=== PATIENT | female | born 1980 | race Caucasian/White ===

== ENCOUNTER 2016-11-17 15:41 | Emergency (ER) | payer OTHER ==
[~2016-11-17 15:41] MED LIST: EXCEDRIN MIGRAINE PO; FLONASE AL50 MCG/ACT IN; NEURONTIN300 MG PO; NORCO1 TA1 PO; PHENERGAN EQUIV25 MG PO; PRAZOSIN HCL5 MG PO; PSEUDOEPHEDRINE30 MG PO; RANITIDINE HCL150 MG PO; SERTRALINE HCL50 MG PO; VENTOLIN HFA IN
--- NOTE | 2016-11-17 17:53 | DIAGNOSTIC IMAGING REPORT ---
PROCEDURE: XR SOFT TISSUE NECK INDICATION: Difficulty swallowing and sore throat. TECHNIQUE: AP and lateral views. COMPARISON: None. FINDINGS: Soft tissues of the neck are within normal limits, including the airway, laryngeal ventricle, and epiglottis. Nasopharynx appears normal. IMPRESSION: 1. Normal soft tissues of the neck.
--- NOTE | 2016-11-17 18:00 | ED NURSING NOTES ---
Clinical Report - Nurses [facility] [address] [place] [address] 11/17/2016 15:42 Patient: NICOLETTE LOPEZ TRIAGE Triage time 16:20. Acuity: LEVEL 4. Chief Complaint: (TROUBLE SWALLOWING). Alert. No acute distress. MORALES COMA SCORE: Morales Coma Scale: 15- eyes open spontaneously (4); best verbal response- oriented x 4 (5); best motor response- obeys commands (6). --16:31 Magalys Estrada R.N. 16:23 11/17/16. BP: 135/65. HR: 88. RR: 18. O2 saturation: 9%. Temp: 97.3 F (oral). Pain level now: 810. --16:31 Magalys Estrada R.N. Weight: 90.7 kg stated. Height/Length: 60 inches Per Patient. BMI: 39.1. --16:27 Magalys Estrada R.N. Medications Ibuprofen Oral 600 mg, PRN as needed, last dose 1000. --16:22 Magalys Estrada R.N. Prazosin HCl Oral 5 mg, at bedtime. Sertraline HCl Oral 150mg daily . TraZODone HCl Oral 150 mg, at bedtime as needed, last dose 2300. --16:22 Magalys Estrada R.N. Amitriptyline HCl Oral, at bedtime. --16:25 Magalys Estrada R.N. Hydrocodone-Acetaminophen Oral. --16:27 Magalys Estrada R.N. The following entry was struck and corrected by Magalys Estrada R.N., 16:24 (11/17/16) Reason for correction - other(correction). <<STRICKEN ENTRY-- TraZODone HCl Oral 150 mg, at bedtime, last dose 2300. --16:22 Magalys Estrada R.N. --END STRIKE>> The following entry was struck and corrected by Magalys Estrada R.N., 16:24 (11/17/16) Reason for correction - other(correction). <<STRICKEN ENTRY-- Ibuprofen Oral 400 mg, 3x a day as needed, last dose 1000. --16:22 Magalys Estrada R.N. --END STRIKE>> The following entry was struck by Magalys Estrada R.N., 16:24 (11/17/16) Reason - other. <<STRICKEN ENTRY-- Gabapentin Oral 300 mg, 3x a day. --16:22 Magalys Estrada R.N. --END STRIKE>>. Medication/allergy information source: other. --16:31 Magalys Estrada R.N. Allergies No Known Drug Allergy. --16:22 Magalys Estrada R.N. History Arrived by private vehicle. Historian: patient. Accompanied by family. Primary physician (Jose). Onset. (3 weeks). ( has had a z-lucas). PAST MEDICAL HX: Last normal menstrual period now. SOCIAL HX: Heavy tobacco smoker- 1 pack per day. Occasional alcohol use. History of drug use: marijuana. FALL RISK ASSESSMENT: Fall risk assessment completed. No fall risk identified. FUNCTIONAL ASSESSMENT: Functional assessment: no impairments noted. LEARNING NEEDS ASSESSMENT: The learning needs assessment revealed no barriers. --16:31 Magalys Estrada R.N. PROBLEMS: Lumbar Strain. Back Pain. --16:26 Magalys Estrada R.N. ADDITIONAL SURGERIES: Cholecystectomy. . Tubal Ligation. --16:26 Magalys Estrada R.N. Assessment GENERAL / NEURO / PSYCH: Alert. Oriented X 4. Appears in no acute distress. Patient appears calm and cooperative. ( managing her secretions without difficulty). RESPIRATORY: Respirations not labored. SKIN: Skin is warm and dry. --16:31 Magalys Estrada R.N. Interventions ID band on patient. To treatment room. --16:31 Magalys Estrada R.N. PHYSICAL ASSESSMENT 16. Ambulatory to room. Patient gowned. GENERAL / NEURO / PSYCH: Alert. Oriented X 4. Appears in no acute distress. HEENT: No facial asymmetry noted. ( throat slightly hoarse and muffled, pt states that it feels like her throat is closing up, and that water and food is going down "the wrong pipe"). RESPIRATORY: Respirations not labored. Cough (in throat, not from lungs). CVS: Capillary refill less than 2 seconds. GI / : Abdomen soft. SKIN: Skin is warm and dry. --16:47 Lila Dior R.N. NURSING PROGRESS NOTES 16:43 11/17/16. Patient gowned. Head of bed elevated. Reassurance given. Patient identifiers checked. Call light placed in reach. Side rails up. Bed placed in lowest position. Patient ready for evaluation- chart flagged. --16:43 Lila Dior R.N. 17:15. Patient transported to radiology by wheelchair with tech. --17:51 Lila Dior R.N. 17:30. Patient returned from radiology by wheelchair with tech. --17:52 Lila Dior R.N. 17:40. Patient ID band checked for patient name and birthdate: patient confirmed. Blood samples drawn by lab per protocol ; labeled in presence of the patient and sent to lab: [facility]. --17:52 Lila Dior R.N. 18:30. ( Pt given dc instructions and rx. verbalized u unhappiness with dx, states that she was expecting to get "scoped in her throat for bump" I told pt that that isn't something we do in ED, and that PCP would have to order it as an outpt. family member stated that they will go to [facility] and see if they can do it. left ambulatory). --20:17 Lila Dior R.N. 18:17 11/17/2016 Toradol (Ketorolac Tromethamine) IM 60 mg given. Given in the right ventral gluteus. --20:17 Lila Dior R.N. late entry -18:15. Patient ID band checked for patient name and birthdate: patient confirmed. Throat swab obtained for rapid strep; labeled in the presence of the patient and sent to lab. --20:18 Lila Dior R.N. DISPOSITION / DISCHARGE 18:35. Condition at departure: unchanged and stable. No learning barriers present. Discharge instructions provided and reviewed with the patient and family. Reviewed medication(s) (amoxicillinn, ultram). Patient and family verbalized understanding. Written instructions provided in Welsh. The patient was discharged home and accompanied by family. She left the Emergency Department ambulatory and via private vehicle. Family member driving. --20:15 Lila Dior R.N. 18:35 11/17/16. BP: 128/80. HR: 96. RR: 18. O2 saturation: 97%. Temp: deferred. Pain level now: 06/21. --20:15 Lila Dior R.N. Locked/Released at 11/17/2016 20:20 by Lila Dior R.N.
--- NOTE | 2016-11-17 18:00 | ED CLINICAL REPORT ---
Clinical Report - Physicians/Mid Levels [facility] [address] [place] [address] 11/17/2016 15:42 Patient: NICOLETTE LOPEZ Time Seen: 16:45; initial patient contact, initial documentation, patient care assumed. Arrived- By private vehicle. Historian- patient. HISTORY OF PRESENT ILLNESS Chief Complaint: SORE THROAT. This started about 3 weeks ago and is still present. Pain described as moderate. The patient has had a moderate sore throat with pain upon swallowing. No mouth sores, nasal discharge or congestion or ear pain. No swollen jaw or face, jaw pain or facial pain. She has had mild toothache involving a single tooth (left lower molar) (for 2 - 3 days). Similar symptoms previously: None. Recent medical care: The patient was seen recently at this facility in a clinic. ( was txed at clinic about a month ago for mihaela kaplan, back there again today with same throat issues). REVIEW OF SYSTEMS No fever, cough, difficulty breathing or chest pain. All systems otherwise negative, except as recorded above. PAST HISTORY See nurses notes. PROBLEMS: Lumbar Strain. Back Pain. --16:26 Magalys Estrada R.N. ADDITIONAL SURGERIES: Cholecystectomy. . Tubal Ligation. --16:26 Magalys Estrada R.N. SOCIAL HISTORY Heavy tobacco smoker. Occasional alcohol use. History of occasional drug use: marijuana. No recent travel. Is a local resident. FAMILY HISTORY Negative. ADDITIONAL NOTES The nursing notes have been reviewed with agreement regarding the chief complaint, HPI, ROS, PMH and patient medications and allergies. PHYSICAL EXAM Appearance: Alert. No acute distress. Head: Normal external inspection. Eyes: Pupils equal, round and reactive to light. Conjunctivae and eyelids normal. ENT: Moderate, extensive dental decay (lower right first premolar). No gingival tenderness, induration, swelling or fluctuance. Ears normal. Nose normal. Pharynx abnormal. Mild generalized pharyngeal erythema. No pharyngeal vesicles or ulcerations. No right tonsillar exudate, right tonsillar abscess, right tonsillar swelling, right peritonsillitis, left tonsillar exudate, left tonsillar abscess, left tonsillar swelling or left peritonsillitis. Lips normal. Gums normal. No trismus present. Uvula midline. Neck: Abnormal inspection. Trachea midline. No adenopathy. Thyroid normal. Neck supple. (tender over thyroid area). Respiratory: No respiratory distress. Abdomen: Mildly obese. Skin: Normal skin color. No rash. Normal skin turgor. Extremities: Extremities exhibit normal ROM. Extremities nontender. Neuro: Oriented X 3. No motor deficit. No sensory deficit. LABS, X-RAYS, AND EKG X-Rays: Soft tissue neck. Soft Tissue Neck X-rays: (IMPRESSION: 1. Normal soft tissues of the neck. Electronically Final signed by:Sal Yun MD 11/17/2016 5:50:30 PM). The X-rays were interpreted by the radiologist and contemporaneously by me. Laboratory Tests: CBC w Diff: (MERYL: 11/17/2016 17:10) ( MsgRcvd 11/17/2016 17:23) Final results Test Result Flag Units (Reference) WHITE BLOOD COUNT 9.9 K/uL (4.5-11.5) RED BLOOD COUNT 4.78 M/uL (4.00-5.20) HEMOGLOBIN 13.4 gm/dL (12.0-16.0) HEMATOCRIT 41.0 % (36.0-46.0) MEAN CELL VOLUME 86 fL (80-100) MEAN CORPUSCULAR HGB 28 pg (26-34) MEAN CORPUSCULAR HGB CONC 33 g/dL (31-37) RED CELL DISTRIBUTION WIDTH 13.2 % (11.6-14.8) PLATELET COUNT 361 K/uL (150-400) NEUTROPHIL % 55.3 % (50-75) LYMPH % 34.5 % (25-40) MONO % 7.3 % (3-14) EOSINOPHIL % 2.4 % (0-4) BASOPHIL % 0.5 % (0-2) BMP: (MERYL: 11/17/2016 17:10) ( MsgRcvd 11/17/2016 17:36) Final results Test Result Flag Units (Reference) GLUCOSE 107 mg/dL (70-110) BUN 17 mg/dL (7-18) CREATININE 0.7 mg/dL (0.6-1.3) Estimated GFR >60 mL/min Estimated GFR- >60 mL/min Note: Persistent reduction over 3 months in eGFR<60 mL/min/1.73 m2 defines CKD. Patients with eGFR values>=60 mL/min/1.73 m2 may also have CKD if evidence ofpersistent proteinuria. Additional information may be foundat www.kidney.org. SODIUM 140 mmol/L (136-145) POTASSIUM 3.8 mmol/L (3.5-5.1) CHLORIDE 106 mmol/L (98-107) CARBON DIOXIDE 27 mmol/L (21-32) CALCIUM 9.0 mg/dL (8.5-10.1) . PROGRESS AND PROCEDURES Course of Care: 17:06 11/17/16. records from clinic reviewed. Patient counseled in person regarding the patient's stable condition, test results and diagnosis. 17:57. Differential Diagnosis: Other possible considerations: pharyngitis, epiglotitis, mono, carl angina, abscess, dental pain, caries. Above considerations are based on history, physical exam, laboratory data and X-Ray data. Differential diagnosis was discussed with patient. Disposition: Discharged home in good and improved condition (18:07). Condition: good and stable. CLINICAL IMPRESSION Acute streptococcal pharyngitis Dental caries (extensive decay) INSTRUCTIONS Warnings: GENERAL WARNINGS: Return or contact your physician immediately if your condition worsens or changes unexpectedly, if not improving as expected, or if other problems arise. Specifically return if problem worsens. Prescription Medications: Amoxicillin 500 mg tablets: Take 1 orally every 8 hours for 10 days. Dispense thirty (30). No refills. Ultram 50 mg tablets: take 1-2 orally every 6 hours as needed for pain. Dispense twenty (20). No refills. Substitution is permissible. Follow-up: Follow up with a dentist in about three days even if well. Call for an appointment. Summary of care provided to patient. Understanding of the discharge instructions verbalized by patient. (Electronically signed by Kristyn Johnson A.R.N.P. 11/17/2016 19:22)
--- NOTE | 2016-11-17 18:00 | ED ORDER SUMMARY ---
..... Patient: NICOLETTE LOPEZ OrderSheet [facility] VisitID: [id number] [place] [address] 36y, F Registration Date/Time: 11/17/2016 ORDER SHEET Weight: 90.7 kg (stated) Allergies: No Known Drug Allergy GENERAL ORDERS: Soft Tissue Neck Urgent (17:07 11/17/2016 HBivens A.R.N.P.) (Ack 17:12 LTapper) (18:01 DDean R.N.) CBC w Diff Urgent (17:07 11/17/2016 HBivens A.R.N.P.) (Ack 17:12 LTapper) (18:01 DDean R.N.) BMP Urgent (17:07 11/17/2016 HBivens A.R.N.P.) (Ack 17:12 LTapper) (18:01 DDean R.N.) Culture, Strep Screen Urgent (18:08 11/17/2016 HBivens A.R.N.P.) (Ack 18:33 LTapper) (20:17 DDean R.N.) MEDICATION ORDERS: Toradol IM 60 mg (NOW) (18:07 11/17/2016 HBivens A.R.N.P.) (Ack 18:27 DDean R.N.) (20:17 DDean R.N.) IV FLUIDS: ORDER SHEET NOTES: [Electronically signed by Kristyn Johnson A.R.N.P. (19:22 11/17/2016)] [Electronically signed by Lila Dior R.N. (20:20 11/17/2016)] [Electronically locked/signed by Lila Dior R.N. (20:20 11/17/2016)]
--- NOTE | 2016-11-17 18:00 | ED ORDER SUMMARY ---
..... Patient: NICOLETTE LOPEZ OrderSheet [facility] VisitID: [id number] [place] [address] 36y, F Registration Date/Time: 11/17/2016 ORDER SHEET Weight: 90.7 kg (stated) Allergies: No Known Drug Allergy GENERAL ORDERS: Soft Tissue Neck Urgent (17:07 11/17/2016 HBivens A.R.N.P.) (Ack 17:12 LTapper) (18:01 DDean R.N.) CBC w Diff Urgent (17:07 11/17/2016 HBivens A.R.N.P.) (Ack 17:12 LTapper) (18:01 DDean R.N.) BMP Urgent (17:07 11/17/2016 HBivens A.R.N.P.) (Ack 17:12 LTapper) (18:01 DDean R.N.) Culture, Strep Screen Urgent (18:08 11/17/2016 HBivens A.R.N.P.) (Ack 18:33 LTapper) (20:17 DDean R.N.) MEDICATION ORDERS: Toradol IM 60 mg (NOW) (18:07 11/17/2016 HBivens A.R.N.P.) (Ack 18:27 DDean R.N.) (20:17 DDean R.N.) IV FLUIDS: ORDER SHEET NOTES: [Electronically signed by Kristyn Johnson A.R.N.P. (19:22 11/17/2016)] [Electronically signed by Lila Dior R.N. (20:20 11/17/2016)] [Electronically locked/signed by Lila Dior R.N. (20:20 11/17/2016)]
--- NOTE | 2016-11-17 20:21 | ED MED RECONCILIATION SUMMARY ---
Patient: NICOLETTE LOPEZ Medication Reconciliation Report [facility] VisitID: [id number] [place] [address] 36y, F Registration Date/Time: 11/17/2016 Weight: 90.7 kg Height/Length: 60 in. BMI: 39.1 ALLERGIES: No Known Drug Allergy The patient's Home Medications are listed below: THE FOLLOWING MEDICATIONS NEED TO BE RECONCILED: Amitriptyline HCl Oral, at bedtime Hydrocodone-Acetaminophen Oral Ibuprofen Oral 600 mg, PRN, last dose: 1000 Prazosin HCl Oral 5 mg, at bedtime Sertraline HCl Oral 150mg daily TraZODone HCl Oral 150 mg, at bedtime, last dose: 2300 The source(s) of the original Home Medication information: other The following Medications were given to the patient in the Emergency Department: Toradol [IM] IM 60 mg, administered: 11/17/2016 6:17:00 PM The following Medications were prescribed to the patient: Amoxicillin 500 mg tablets: Take 1 orally every 8 hours for 10 days. Dispense thirty (30). No refills. -- Kristyn Johnson, Ayush.R.N.P. Ultram 50 mg tablets: take 1-2 orally every 6 hours as needed for pain. Dispense twenty (20). No refills. Substitution is permissible. -- Kristyn Johnson A.R.N.P.
--- NOTE | 2016-11-17 20:21 | ED MAR SUMMARY ---
..... Medication Administration Record [facility] [address] [place] [address] Patient: NICOLETTE LOPEZ Visit ID: [id number] 36y, F Weight: 90.7 kg Height/Length: 60 in BMI: 39.1 ALLERGIES: No Known Drug Allergy Given 18:17 11/17/2016 VoiLila RDeonNDeon Medication Administered: TORADOL [IM] (KETOROLAC TROMETHAMINE), Dose: 60 mg IM. Medication Ordered: Toradol IM 60 mg (NOW).
--- NOTE | 2016-11-17 20:21 | ED DISCHARGE INSTRUCTIONS ---
Patient: NICOLETTE LOPEZ General Instructions [facility] VisitID: [id number] [place] [address] 36y, F Registration Date/Time: 11/17/2016 Acute streptococcal pharyngitis Dental caries (extensive decay) INSTRUCTIONS Warnings: GENERAL WARNINGS: Return or contact your physician immediately if your condition worsens or changes unexpectedly, if not improving as expected, or if other problems arise. Specifically return if problem worsens. Prescription Medications: Amoxicillin 500 mg tablets: Take 1 orally every 8 hours for 10 days. Dispense thirty (30). No refills. Ultram 50 mg tablets: take 1-2 orally every 6 hours as needed for pain. Dispense twenty (20). No refills. Substitution is permissible. Follow-up: Follow up with a dentist in about three days even if well. Call for an appointment. Summary of care provided to patient. Understanding of the discharge instructions verbalized by patient. ADDITIONAL INFORMATION Pharyngitis: Strep [Presumed] Your illness has the signs of a strep throat infection. Strep throat is a contagious illness. It is spread by coughing, kissing or by touching others after touching your mouth or nose. Symptoms include throat pain worse with swallowing, aching all over, headache and fever. You will be treated with an antibiotic, which should make you start to feel better within 1-2 days. Home Care: Rest at home and drink plenty of fluids to avoid dehydration. No school or work for the first two days on antibiotics. You will not be contagious after this time, and if you are feeling better, you can return to school or work. Take your antibiotics for a full 10 days, even if you feel better after the first few days of treatment. This is very important to prevent complications from the strep infection (such as heart or kidney disease). Children: Use acetaminophen (Tylenol) for fever, fussiness or discomfort. In infants over six months of age, you may use ibuprofen (Children's Motrin) instead of Tylenol. [NOTE: If your child has chronic liver or kidney disease or ever had a stomach ulcer or GI bleeding, talk with your doctor before using these medicines.] (Aspirin should never be used in anyone under 18 years of age who is ill with a fever. It may cause severe liver damage.) Adults: You may use acetaminophen (Tylenol) or ibuprofen (Motrin, Advil) to control pain or fever, unless another medicine was prescribed for this. [NOTE: If you have chronic liver or kidney disease or ever had a stomach ulcer or GI bleeding, talk with your doctor before using these medicines.] Throat lozenges or sprays (Chloraseptic and others) will reduce pain. Gargling with warm salt water will also reduce throat pain. Dissolve 1/2 teaspoon of salt in 1 glass of warm water. This is especially useful just before meals. Follow Up with your doctor or as directed by our staff if you are not improving over the next week. Get Prompt Medical Attention if any of the following occur: Fever over 100.5F (38.0C) oral, or over 101.5F (38.6C) rectal for more than three days New or worsening ear pain, sinus pain or headache Painful lumps in the back of your neck Unable to swallow liquids or open your mouth wide due to throat pain Trouble breathing or noisy breathing Muffled voice New rash Dental Cavity A dental cavity is a pit or crater in the enamel surface of the tooth. This exposes the sensitive inner layer of the tooth and causes pain. If untreated, the cavity will get bigger and may cause an infection or abscess in the root of the tooth. An infection in the tooth is a much more serious problem and may require a root canal or removal of the entire tooth. The tooth pain may be made worse by drinking hot or cold fluids. It may spread from the tooth to the ear or jaw on the same side. Home Care: Avoid hot and cold foods, and liquids since your tooth may be sensitive to temperature changes. If your tooth is chipped or cracked, or if there is a large open cavity, apply OIL OF CLOVES (available gomy-uri-kvmplbd in drug stores) directly to the tooth to reduce pain. Some pharmacies carry an dmxl-eku-qlrjcxb "toothache kit." This contains oil of cloves and a paste, which can be applied over the exposed tooth to decrease sensitivity. An ice pack on your jaw over the sore area may help to reduce pain. You may use acetaminophen (Tylenol) or ibuprofen (Motrin, Advil) to control pain, unless another pain medicine was prescribed. [ NOTE: If you have liver disease or ever had a stomach ulcer, talk with your doctor before using these medicines.] If you have signs of an infection, an antibiotic will be given. Take it as directed. Follow-Up with your dentist as directed. Although your pain may go away with the treatment given, only a dentist can fully evaluate and treat this problem to prevent further tooth damage. Get Prompt Medical Attention if any of the following occur: Redness or swelling of the face Pain worsens or spreads to the neck Fever over 100.5 F (38C) Unusual drowsiness; headache or stiff neck; weakness or fainting Pus drains from the tooth or gum Difficulty swallowing or breathing Dental Pain A crack or cavity in the tooth, which exposes the sensitive inner area of the tooth can cause tooth pain. An infection in the gum or the root of the tooth can cause pain and swelling. The pain is often made worse by drinking hot or cold fluids, or biting on hard foods. Pain may spread from the tooth to the ear or jaw on the same side. Home Care: Avoid hot and cold foods and liquids since your tooth may be sensitive to temperature changes. If your tooth is chipped or cracked, or if there is a large open cavity, apply OIL OF CLOVES (available wwag-plf-epkvhtc in drug stores) directly to the tooth to reduce pain. Some pharmacies carry an uyow-ibm-hasliah "toothache kit." This contains a paste, which can be applied over the exposed tooth to decrease sensitivity. A cold pack on your jaw over the sore area may help reduce pain. You may use acetaminophen (Tylenol) or ibuprofen (Motrin, Advil) to control pain, unless another medicine was prescribed. [ NOTE: If you have chronic liver or kidney disease or ever had a stomach ulcer or GI bleeding, talk with your doctor before using these medicines.] If you have signs of an infection, an antibiotic will be given. Take it as directed. Follow-Up as directed with a dentist. Your pain may go away with the treatment given. However, only a dentist can fully evaluate and treat the cause and prevent the pain from coming back again. TOOTHACHE IS A SIGN OF DISEASE IN YOUR TOOTH AND SHOULD BE EXAMINED AND TREATED BY A DENTIST. Get Prompt Medical Attention if any of the following occur: Your face becomes swollen or red Pain worsens or spreads to the neck Fever over 100.4 F (38.0 C) Unusual drowsiness; headache or stiff neck; weakness or fainting Pus drains from the tooth Difficulty swallowing or breathing Amoxicillin Trihydrate Oral tablet What is this medicine? AMOXICILLIN (a mox i BECKY in) is a penicillin antibiotic. It is used to treat certain kinds of bacterial infections. It will not work for colds, flu, or other viral infections. How should I use this medicine? Take this medicine by mouth with a glass of water. Follow the directions on your prescription label. You may take this medicine with food or on an empty stomach. Take your medicine at regular intervals. Do not take your medicine more often than directed. Take all of your medicine as directed even if you think your are better. Do not skip doses or stop your medicine early. Talk to your consulting group analyst regarding the use of this medicine in children. While this drug may be prescribed for selected conditions, precautions do apply. What side effects may I notice from receiving this medicine? Side effects that you should report to your doctor or health date night caregiver as soon as possible: allergic reactions like skin rash, itching or hives, swelling of the face, lips, or tongue breathing problems dark urine redness, blistering, peeling or loosening of the skin, including inside the mouth seizures severe or watery diarrhea trouble passing urine or change in the amount of urine unusual bleeding or bruising unusually weak or tired yellowing of the eyes or skin Side effects that usually do not require medical attention (report to your doctor or health date night caregiver if they continue or are bothersome): dizziness headache stomach upset trouble sleeping What may interact with this medicine? amiloride control pills chloramphenicol macrolides probenecid sulfonamides tetracyclines What if I miss a dose? If you miss a dose, take it as soon as you can. If it is almost time for your next dose, take only that dose. Do not take double or extra doses. Where should I keep my medicine? Keep out of the reach of children. Store between 68 and 77 degrees F (20 and 25 degrees C). Keep bottle closed tightly. Throw away any unused medicine after the expiration date. What should I tell my health care provider before I take this medicine? They need to know if you have any of these conditions: asthma kidney disease an unusual or allergic reaction to amoxicillin, other penicillins, cephalosporin antibiotics, other medicines, foods, dyes, or preservatives or trying to get breast-feeding What should I watch for while using this medicine? Tell your doctor or health date night caregiver if your symptoms do not improve in 2 or 3 days. Take all of the doses of your medicine as directed. Do not skip doses or stop your medicine early. If you are diabetic, you may get a false positive result for sugar in your urine with certain brands of urine tests. Check with your doctor. Do not treat diarrhea with ugst-jou-zwcojdn products. Contact your doctor if you have diarrhea that lasts more than 2 days or if the diarrhea is severe and watery. Tramadol Hydrochloride Oral tablet What is this medicine? TRAMADOL (TRA ma dole) is a pain reliever. It is used to treat moderate to severe pain in adults. How should I use this medicine? Take this medicine by mouth with a full glass of water. Follow the directions on the prescription label. If the medicine upsets your stomach, take it with food or milk. Do not take more medicine than you are told to take. Talk to your consulting group analyst regarding the use of this medicine in children. Special care may be needed. What side effects may I notice from receiving this medicine? Side effects that you should report to your doctor or health date night caregiver as soon as possible: allergic reactions like skin rash, itching or hives, swelling of the face, lips, or tongue breathing difficulties, wheezing confusion itching light headedness or fainting spells redness, blistering, peeling or loosening of the skin, including inside the mouth seizures Side effects that usually do not require medical attention (report to your doctor or health date night caregiver if they continue or are bothersome): constipation dizziness drowsiness headache nausea, vomiting What may interact with this medicine? Do not take this medicine with any of the following medications: MAOIs like Carbex, Eldepryl, Marplan, Nardil, and Parnate This medicine may also interact with the following medications: alcohol or medicines that contain alcohol antihistamines benzodiazepines bupropion carbamazepine or oxcarbazepine clozapine cyclobenzaprine digoxin furazolidone linezolid medicines for depression, anxiety, or psychotic disturbances medicines for migraine headache like almotriptan, eletriptan, frovatriptan, naratriptan, rizatriptan, sumatriptan, zolmitriptan medicines for pain like pentazocine, buprenorphine, butorphanol, meperidine, nalbuphine, and propoxyphene medicines for sleep muscle relaxants naltrexone phenobarbital phenothiazines like perphenazine, thioridazine, chlorpromazine, mesoridazine, fluphenazine, prochlorperazine, promazine, and trifluoperazine procarbazine warfarin What if I miss a dose? If you miss a dose, take it as soon as you can. If it is almost time for your next dose, take only that dose. Do not take double or extra doses. Where should I keep my medicine? Keep out of the reach of children. Store at room temperature between 15 and 30 degrees C (59 and 86 degrees F). Keep container tightly closed. Throw away any unused medicine after the expiration date. What should I tell my health care provider before I take this medicine? They need to know if you have any of these conditions: brain tumor depression drug abuse or addiction head injury if you frequently drink alcohol containing drinks kidney disease or trouble passing urine liver disease lung disease, asthma, or breathing problems seizures or epilepsy suicidal thoughts, plans, or attempt; a previous suicide attempt by you or a family member an unusual or allergic reaction to tramadol, codeine, other medicines, foods, dyes, or preservatives or trying to get breast-feeding What should I watch for while using this medicine? Tell your doctor or health date night caregiver if your pain does not go away, if it gets worse, or if you have new or a different type of pain. You may develop tolerance to the medicine. Tolerance means that you will need a higher dose of the medicine for pain relief. Tolerance is normal and is expected if you take this medicine for a long time. Do not suddenly stop taking your medicine because you may develop a severe reaction. Your body becomes used to the medicine. This does NOT mean you are addicted. Addiction is a behavior related to getting and using a drug for a non-medical reason. If you have pain, you have a medical reason to take pain medicine. Your doctor will tell you how much medicine to take. If your doctor wants you to stop the medicine, the dose will be slowly lowered over time to avoid any side effects. You may get drowsy or dizzy. Do not drive, use machinery, or do anything that needs mental alertness until you know how this medicine affects you. Do not stand or sit up quickly, especially if you are an older patient. This reduces the risk of dizzy or fainting spells. Alcohol can increase or decrease the effects of this medicine. Avoid alcoholic drinks. You may have constipation. Try to have a bowel movement at least every 2 to 3 days. If you do not have a bowel movement for 3 days, call your doctor or health date night caregiver. Your mouth may get dry. Chewing sugarless gum or sucking hard candy, and drinking plenty of water may help. Contact your doctor if the problem does not go away or is severe. You have been given the following additional information: Pharyngitis, Strep (Presumed) Dental Cavity Dental Pain Amoxicillin Trihydrate Oral tablet Tramadol Hydrochloride Oral tablet (Electronically signed by Kristyn Johnson A.R.N.P. 11/17/2016 19:22)
--- NOTE | 2016-11-17 20:21 | ED MAR SUMMARY ---
..... Medication Administration Record [facility] [address] [place] [address] Patient: NICOLETTE LOPEZ Visit ID: [id number] 36y, F Weight: 90.7 kg Height/Length: 60 in BMI: 39.1 ALLERGIES: No Known Drug Allergy Given 18:17 11/17/2016 OviLila RDeonNDeon Medication Administered: TORADOL [IM] (KETOROLAC TROMETHAMINE), Dose: 60 mg IM. Medication Ordered: Toradol IM 60 mg (NOW).
--- NOTE | 2016-11-17 20:21 | ED MED RECONCILIATION SUMMARY ---
Patient: NICOLETTE LOPEZ Medication Reconciliation Report [facility] VisitID: [id number] [place] [address] 36y, F Registration Date/Time: 11/17/2016 Weight: 90.7 kg Height/Length: 60 in. BMI: 39.1 ALLERGIES: No Known Drug Allergy The patient's Home Medications are listed below: THE FOLLOWING MEDICATIONS NEED TO BE RECONCILED: Amitriptyline HCl Oral, at bedtime Hydrocodone-Acetaminophen Oral Ibuprofen Oral 600 mg, PRN, last dose: 1000 Prazosin HCl Oral 5 mg, at bedtime Sertraline HCl Oral 150mg daily TraZODone HCl Oral 150 mg, at bedtime, last dose: 2300 The source(s) of the original Home Medication information: other The following Medications were given to the patient in the Emergency Department: Toradol [IM] IM 60 mg, administered: 11/17/2016 6:17:00 PM The following Medications were prescribed to the patient: Amoxicillin 500 mg tablets: Take 1 orally every 8 hours for 10 days. Dispense thirty (30). No refills. -- Kristyn Johnson, Ayush.R.N.P. Ultram 50 mg tablets: take 1-2 orally every 6 hours as needed for pain. Dispense twenty (20). No refills. Substitution is permissible. -- Kristyn Johnson A.R.N.P.
--- NOTE | 2016-11-17 20:21 | ED DISCHARGE INSTRUCTIONS ---
Patient: NICOLETTE LOPEZ General Instructions [facility] VisitID: [id number] [place] [address] 36y, F Registration Date/Time: 11/17/2016 Acute streptococcal pharyngitis Dental caries (extensive decay) INSTRUCTIONS Warnings: GENERAL WARNINGS: Return or contact your physician immediately if your condition worsens or changes unexpectedly, if not improving as expected, or if other problems arise. Specifically return if problem worsens. Prescription Medications: Amoxicillin 500 mg tablets: Take 1 orally every 8 hours for 10 days. Dispense thirty (30). No refills. Ultram 50 mg tablets: take 1-2 orally every 6 hours as needed for pain. Dispense twenty (20). No refills. Substitution is permissible. Follow-up: Follow up with a dentist in about three days even if well. Call for an appointment. Summary of care provided to patient. Understanding of the discharge instructions verbalized by patient. ADDITIONAL INFORMATION Pharyngitis: Strep [Presumed] Your illness has the signs of a strep throat infection. Strep throat is a contagious illness. It is spread by coughing, kissing or by touching others after touching your mouth or nose. Symptoms include throat pain worse with swallowing, aching all over, headache and fever. You will be treated with an antibiotic, which should make you start to feel better within 1-2 days. Home Care: Rest at home and drink plenty of fluids to avoid dehydration. No school or work for the first two days on antibiotics. You will not be contagious after this time, and if you are feeling better, you can return to school or work. Take your antibiotics for a full 10 days, even if you feel better after the first few days of treatment. This is very important to prevent complications from the strep infection (such as heart or kidney disease). Children: Use acetaminophen (Tylenol) for fever, fussiness or discomfort. In infants over six months of age, you may use ibuprofen (Children's Motrin) instead of Tylenol. [NOTE: If your child has chronic liver or kidney disease or ever had a stomach ulcer or GI bleeding, talk with your doctor before using these medicines.] (Aspirin should never be used in anyone under 18 years of age who is ill with a fever. It may cause severe liver damage.) Adults: You may use acetaminophen (Tylenol) or ibuprofen (Motrin, Advil) to control pain or fever, unless another medicine was prescribed for this. [NOTE: If you have chronic liver or kidney disease or ever had a stomach ulcer or GI bleeding, talk with your doctor before using these medicines.] Throat lozenges or sprays (Chloraseptic and others) will reduce pain. Gargling with warm salt water will also reduce throat pain. Dissolve 1/2 teaspoon of salt in 1 glass of warm water. This is especially useful just before meals. Follow Up with your doctor or as directed by our staff if you are not improving over the next week. Get Prompt Medical Attention if any of the following occur: Fever over 100.5F (38.0C) oral, or over 101.5F (38.6C) rectal for more than three days New or worsening ear pain, sinus pain or headache Painful lumps in the back of your neck Unable to swallow liquids or open your mouth wide due to throat pain Trouble breathing or noisy breathing Muffled voice New rash Dental Cavity A dental cavity is a pit or crater in the enamel surface of the tooth. This exposes the sensitive inner layer of the tooth and causes pain. If untreated, the cavity will get bigger and may cause an infection or abscess in the root of the tooth. An infection in the tooth is a much more serious problem and may require a root canal or removal of the entire tooth. The tooth pain may be made worse by drinking hot or cold fluids. It may spread from the tooth to the ear or jaw on the same side. Home Care: Avoid hot and cold foods, and liquids since your tooth may be sensitive to temperature changes. If your tooth is chipped or cracked, or if there is a large open cavity, apply OIL OF CLOVES (available bwxs-rjb-znysobs in drug stores) directly to the tooth to reduce pain. Some pharmacies carry an tgyb-uck-lspkvrt "toothache kit." This contains oil of cloves and a paste, which can be applied over the exposed tooth to decrease sensitivity. An ice pack on your jaw over the sore area may help to reduce pain. You may use acetaminophen (Tylenol) or ibuprofen (Motrin, Advil) to control pain, unless another pain medicine was prescribed. [ NOTE: If you have liver disease or ever had a stomach ulcer, talk with your doctor before using these medicines.] If you have signs of an infection, an antibiotic will be given. Take it as directed. Follow-Up with your dentist as directed. Although your pain may go away with the treatment given, only a dentist can fully evaluate and treat this problem to prevent further tooth damage. Get Prompt Medical Attention if any of the following occur: Redness or swelling of the face Pain worsens or spreads to the neck Fever over 100.5 F (38C) Unusual drowsiness; headache or stiff neck; weakness or fainting Pus drains from the tooth or gum Difficulty swallowing or breathing Dental Pain A crack or cavity in the tooth, which exposes the sensitive inner area of the tooth can cause tooth pain. An infection in the gum or the root of the tooth can cause pain and swelling. The pain is often made worse by drinking hot or cold fluids, or biting on hard foods. Pain may spread from the tooth to the ear or jaw on the same side. Home Care: Avoid hot and cold foods and liquids since your tooth may be sensitive to temperature changes. If your tooth is chipped or cracked, or if there is a large open cavity, apply OIL OF CLOVES (available ddfk-buk-emtujlc in drug stores) directly to the tooth to reduce pain. Some pharmacies carry an zlwu-kbc-zgpiljh "toothache kit." This contains a paste, which can be applied over the exposed tooth to decrease sensitivity. A cold pack on your jaw over the sore area may help reduce pain. You may use acetaminophen (Tylenol) or ibuprofen (Motrin, Advil) to control pain, unless another medicine was prescribed. [ NOTE: If you have chronic liver or kidney disease or ever had a stomach ulcer or GI bleeding, talk with your doctor before using these medicines.] If you have signs of an infection, an antibiotic will be given. Take it as directed. Follow-Up as directed with a dentist. Your pain may go away with the treatment given. However, only a dentist can fully evaluate and treat the cause and prevent the pain from coming back again. TOOTHACHE IS A SIGN OF DISEASE IN YOUR TOOTH AND SHOULD BE EXAMINED AND TREATED BY A DENTIST. Get Prompt Medical Attention if any of the following occur: Your face becomes swollen or red Pain worsens or spreads to the neck Fever over 100.4 F (38.0 C) Unusual drowsiness; headache or stiff neck; weakness or fainting Pus drains from the tooth Difficulty swallowing or breathing Amoxicillin Trihydrate Oral tablet What is this medicine? AMOXICILLIN (a mox i BECKY in) is a penicillin antibiotic. It is used to treat certain kinds of bacterial infections. It will not work for colds, flu, or other viral infections. How should I use this medicine? Take this medicine by mouth with a glass of water. Follow the directions on your prescription label. You may take this medicine with food or on an empty stomach. Take your medicine at regular intervals. Do not take your medicine more often than directed. Take all of your medicine as directed even if you think your are better. Do not skip doses or stop your medicine early. Talk to your title insurance sales representative regarding the use of this medicine in children. While this drug may be prescribed for selected conditions, precautions do apply. What side effects may I notice from receiving this medicine? Side effects that you should report to your doctor or health skin care therapist as soon as possible: allergic reactions like skin rash, itching or hives, swelling of the face, lips, or tongue breathing problems dark urine redness, blistering, peeling or loosening of the skin, including inside the mouth seizures severe or watery diarrhea trouble passing urine or change in the amount of urine unusual bleeding or bruising unusually weak or tired yellowing of the eyes or skin Side effects that usually do not require medical attention (report to your doctor or health skin care therapist if they continue or are bothersome): dizziness headache stomach upset trouble sleeping What may interact with this medicine? amiloride control pills chloramphenicol macrolides probenecid sulfonamides tetracyclines What if I miss a dose? If you miss a dose, take it as soon as you can. If it is almost time for your next dose, take only that dose. Do not take double or extra doses. Where should I keep my medicine? Keep out of the reach of children. Store between 68 and 77 degrees F (20 and 25 degrees C). Keep bottle closed tightly. Throw away any unused medicine after the expiration date. What should I tell my health care provider before I take this medicine? They need to know if you have any of these conditions: asthma kidney disease an unusual or allergic reaction to amoxicillin, other penicillins, cephalosporin antibiotics, other medicines, foods, dyes, or preservatives or trying to get breast-feeding What should I watch for while using this medicine? Tell your doctor or health skin care therapist if your symptoms do not improve in 2 or 3 days. Take all of the doses of your medicine as directed. Do not skip doses or stop your medicine early. If you are diabetic, you may get a false positive result for sugar in your urine with certain brands of urine tests. Check with your doctor. Do not treat diarrhea with moua-vnz-bgmwgfb products. Contact your doctor if you have diarrhea that lasts more than 2 days or if the diarrhea is severe and watery. Tramadol Hydrochloride Oral tablet What is this medicine? TRAMADOL (TRA ma dole) is a pain reliever. It is used to treat moderate to severe pain in adults. How should I use this medicine? Take this medicine by mouth with a full glass of water. Follow the directions on the prescription label. If the medicine upsets your stomach, take it with food or milk. Do not take more medicine than you are told to take. Talk to your title insurance sales representative regarding the use of this medicine in children. Special care may be needed. What side effects may I notice from receiving this medicine? Side effects that you should report to your doctor or health skin care therapist as soon as possible: allergic reactions like skin rash, itching or hives, swelling of the face, lips, or tongue breathing difficulties, wheezing confusion itching light headedness or fainting spells redness, blistering, peeling or loosening of the skin, including inside the mouth seizures Side effects that usually do not require medical attention (report to your doctor or health skin care therapist if they continue or are bothersome): constipation dizziness drowsiness headache nausea, vomiting What may interact with this medicine? Do not take this medicine with any of the following medications: MAOIs like Carbex, Eldepryl, Marplan, Nardil, and Parnate This medicine may also interact with the following medications: alcohol or medicines that contain alcohol antihistamines benzodiazepines bupropion carbamazepine or oxcarbazepine clozapine cyclobenzaprine digoxin furazolidone linezolid medicines for depression, anxiety, or psychotic disturbances medicines for migraine headache like almotriptan, eletriptan, frovatriptan, naratriptan, rizatriptan, sumatriptan, zolmitriptan medicines for pain like pentazocine, buprenorphine, butorphanol, meperidine, nalbuphine, and propoxyphene medicines for sleep muscle relaxants naltrexone phenobarbital phenothiazines like perphenazine, thioridazine, chlorpromazine, mesoridazine, fluphenazine, prochlorperazine, promazine, and trifluoperazine procarbazine warfarin What if I miss a dose? If you miss a dose, take it as soon as you can. If it is almost time for your next dose, take only that dose. Do not take double or extra doses. Where should I keep my medicine? Keep out of the reach of children. Store at room temperature between 15 and 30 degrees C (59 and 86 degrees F). Keep container tightly closed. Throw away any unused medicine after the expiration date. What should I tell my health care provider before I take this medicine? They need to know if you have any of these conditions: brain tumor depression drug abuse or addiction head injury if you frequently drink alcohol containing drinks kidney disease or trouble passing urine liver disease lung disease, asthma, or breathing problems seizures or epilepsy suicidal thoughts, plans, or attempt; a previous suicide attempt by you or a family member an unusual or allergic reaction to tramadol, codeine, other medicines, foods, dyes, or preservatives or trying to get breast-feeding What should I watch for while using this medicine? Tell your doctor or health skin care therapist if your pain does not go away, if it gets worse, or if you have new or a different type of pain. You may develop tolerance to the medicine. Tolerance means that you will need a higher dose of the medicine for pain relief. Tolerance is normal and is expected if you take this medicine for a long time. Do not suddenly stop taking your medicine because you may develop a severe reaction. Your body becomes used to the medicine. This does NOT mean you are addicted. Addiction is a behavior related to getting and using a drug for a non-medical reason. If you have pain, you have a medical reason to take pain medicine. Your doctor will tell you how much medicine to take. If your doctor wants you to stop the medicine, the dose will be slowly lowered over time to avoid any side effects. You may get drowsy or dizzy. Do not drive, use machinery, or do anything that needs mental alertness until you know how this medicine affects you. Do not stand or sit up quickly, especially if you are an older patient. This reduces the risk of dizzy or fainting spells. Alcohol can increase or decrease the effects of this medicine. Avoid alcoholic drinks. You may have constipation. Try to have a bowel movement at least every 2 to 3 days. If you do not have a bowel movement for 3 days, call your doctor or health skin care therapist. Your mouth may get dry. Chewing sugarless gum or sucking hard candy, and drinking plenty of water may help. Contact your doctor if the problem does not go away or is severe. You have been given the following additional information: Pharyngitis, Strep (Presumed) Dental Cavity Dental Pain Amoxicillin Trihydrate Oral tablet Tramadol Hydrochloride Oral tablet (Electronically signed by Kristyn Johnson A.R.N.P. 11/17/2016 19:22)
== END 2016-11-17 18:35 | disposition home or self-care (01) ==
LOC: ED SRH 15:41
DX: J02.0 Streptococcal pharyngitis (principal); K02.9 Dental caries, unspecified; Z79.899 Other long term (current) drug therapy; F17.290 Nicotine dependence, other tobacco product, uncomplicated
CPT/HCPCS: 90047; 90074; 90154; 90159; 95059

== ENCOUNTER 2017-01-23 11:21 | Outpatient (CLI) | payer OTHER ==
--- NOTE | 2017-01-23 13:34 | DIAGNOSTIC IMAGING REPORT ---
PROCEDURE: XR BARIUM SWALLOW INDICATION: DYSPHAGIA TECHNIQUE: Double contrast study. Fluoroscopy time, 2.8 minutes; 1043.42 mGy. 69 fluoroscopic images (including cine fluoroscopy of the esophagus). COMPARISON: Comparison made radiographs of the soft tissues of the neck on 11/17/2016. FINDINGS: Pharyngoesophagus demonstrates trace glottic penetration and aspiration with thin liquids. Pharyngoesophagus is otherwise normal. There is moderate to marked gastroesophageal reflux. Esophagus is otherwise normal. IMPRESSION: 1. Trace glottic penetration and aspiration with thin liquids. While this may be transient, consider pharyngoesophageal dysmotility. Modified barium swallow with speech pathology may be of assistance in clarifying. 2. Moderate to marked gastroesophageal reflux. 3. Findings discussed with the patient and called to CALVIN Godinez.
== END 2017-01-23 23:00 ==
LOC: XR SRH 11:21
DX: K21.9 Gastro-esophageal reflux disease without esophagitis (principal)